=== PATIENT | male | born 1975 | race Caucasian/White ===

== ENCOUNTER 2024-11-27 19:21 | Emergency (ER) | payer OTHER, SELFPAY ==
[2024-11-27] VITALS (9 sets, daily range): BP systolic 121–134; BP diastolic 78–94; PULSE 93–127; RESP 13–24; TEMP 36.4–36.7; O2SAT 93–97
[2024-11-27] MEDS: EPINEPHrine HCL INJ 1 MG/ML AMPUL 0.3 MG IM (19:48)
--- NOTE | 2024-11-27 19:59 | ED.ALLEREA ---
HPI - Allergic Reaction General Chief complaint: Allergic Reaction Stated complaint: Allergic Reaction Time Seen by Provider: 11/27/24 19:24 Source: patient Mode of arrival: ambulatory Limitations: no limitations History of Present Illness HPI narrative: 49-year-old otherwise healthy here with a complains of having an allergic reaction. Patient states that he mowed grass got back into house few hous later his face is swollen and red , this never happened to him before , denies any SOB or Chest tightness , complaint: allergic reaction and facial swelling Onset (ago): hour(s) (1) Exposure: unknown Symptoms: facial swelling Severity: moderate Treatment prior to arrival: none Previous Allergic Reaction History: none Related Data Allergies Allergy/AdvReac Type Severity Reaction Status Date / Time No Known Allergies Allergy Verified 11/27/24 19:26 Review of Systems Review of Systems: All systems reviewed & are unremarkable except as noted in HPI and below Constitutional: Constitutional: Reports no additional constitutional complaints Eyes: Eyes: Reports no additional eye complaints ENT: Reports system reviewed and no additional complaints, except as documented Cardiovascular: Cardiovascular: Reports no additional cardiovascular complaints Respiratory: Respiratory: Reports no additional respiratory complaints Gastrointestinal: Gastrointestinal: Reports no additional gastrointestinal complaints Musculoskeletal: Musculoskeletal: Reports no additional musculoskeletal complaints Integumentary/Breasts: Skin/Breast: Reports as per HPI Neurologic: Reports system reviewed and no additional complaints, except as documented Psychiatric: Psychiatric: Reports no additional psychiatric complaints Exam Narrative: GENERAL: Well-appearing, well-nourished, and in no acute distress. HEAD: Normocephalic, atraumatic.face is red and swollen EYES: PERRLA and EOMI. ENT: Nares clear, no rhinorrhea or epistaxis. Mucous membranes moist.Uvula midline NECK: Supple. CHEST: Clear to auscultation. No respiratory distress. HEART: Regular rate and rhythm. No murmur heard. Normal peripheral pulses. ABDOMEN: Soft, nontender, nondistended, normal active bowel sounds. EXTREMITIES: Normal range of motion. No edema. SKIN: Warm, dry, no rash. NEURO: No focal deficits. Alert and oriented x3. PSYCH: Normal mood and affect. Course Course Emergency Course: feeling better , puffiness of his eyelids has gone down , able to breath through his nose better , feels good to go home. Vital Signs Vital signs: Vital Signs Temperature 36.6 C 11/27/24 19:22 Pulse Rate 127 H 11/27/24 19:22 Respiratory Rate 17 11/27/24 19:22 Blood Pressure 134/94 H 11/27/24 19:22 Pulse Oximetry 95 11/27/24 19:22 Oxygen Delivery Room Air 11/27/24 19:22 Temperature 36.7 C 11/27/24 20:31 Pulse Rate 95 11/27/24 21:01 Respiratory Rate 18 11/27/24 21:01 Blood Pressure 123/79 11/27/24 21:01 Pulse Oximetry 93 11/27/24 21:01 Oxygen Delivery Room Air 11/27/24 20:46 Discharge Plan Discharge Clinical Impression: Allergic reaction Qualifiers: Encounter type: initial encounter Qualified Code(s): T78.40XA - Allergy, unspecified, initial encounter Patient Disposition: Home Condition: Stable Instructions: Allergies (ED) Additional Instructions: can take Zyrtec daily for 1 wk. Patient Language: [place] Prescriptions: New prednisone 20 mg tablet 20 mg PO BID 3 Days Qty: 6 0RF Follow-up/Referrals: Cassi Lynn TECH [Primary Care Provider, Nursing] Time of Disposition: 21:10
--- NOTE | 2024-11-27 20:40 | PC.NURSE ---
Pt reports is feeling better post medications. Swelling to periorbital area appears lessened and redness to eyes and face has decreased. Pt states nasal congestion has also improved. Family at bedside. No new needs voiced at this time.
== END 2024-11-27 21:53 | disposition home or self-care (01) ==
PROVIDERS: Emergency Provider Family Medicine
DX: T78.40XA Allergy, unspecified, initial encounter (principal)
CPT/HCPCS: 96372; 96374; 96375; 99284; J0166; J1200; J2919